=== PATIENT | female | born 1965 | race Caucasian/White ===

== ENCOUNTER → 2021-06-12 | Outpatient (CLI) | payer OTHER ==
--- NOTE | 2021-06-12 16:03 | RAD ---
US ABDOMEN COMPLETE History: Reason: ELEVATED ALKALINE PHOSPHATE LEVEL / Spl. Instructions: / History: Comparison: None. Technique: Sonographic examination of the abdomen was performed and multiple grayscale and color Dopp ler static images were obtained. Findings: Liver demonstrates normal echogenicity. The liver measures 15.1 cm. Portal flow is patent. No cholelithiasis, gallbladder wall thickening or pericholecystic fluid. Common bile duct measures 2 mm in diameter. Visualized pancreas unremarkable. The right kidney measures 11.7 x 5.3 x 4.6 cm. No hydronephrosis. The left kidney measures 12.0 x 5.0 x 5.7 cm. No hydronephrosis. The spleen measures 9.5 cm. Visualized portions of the abdominal aorta and IVC are normal. IMPRESSION: 1. Unremarkable abdominal ultrasound. Electronically signed by: Luis Manuel Bonilla DO (06/12/2021 4:00 PM) [id number]
== END ==
LOC: US 08:51
PROVIDERS: ATTEND Family Medicine
DX: R74.8 Abnormal levels of other serum enzymes (principal)
CPT/HCPCS: 76700